=== PATIENT | female | born 1975 | race Two or more races ===

== ENCOUNTER 2017-04-04 18:38 | Emergency (ER) | payer MEDICAID ==
[~2017-04-04] VITALS: Ht 157.5 cm; Wt 102.1 kg
[2017-04-04 18:51] VITALS: BP 127/75
== END 2017-04-04 19:53 | disposition home or self-care (01) ==
LOC: ED 19:31
DX: B86 Scabies (principal)
CPT/HCPCS: 99283

== ENCOUNTER 2019-01-23 07:03 | Emergency (ER) | payer MEDICAID ==
[~2019-01-23] VITALS: Ht 157.5 cm; Wt 85.9 kg
[2019-01-23] MEDS ORDERED: MORPHINE SULFATE 4 MG/ML, 1ML ONE (07:09)
[2019-01-23] MEDS ORDERED: ONDANSETRON 2MG/ML, 2ML ONE (07:09)
[2019-01-23 07:19] LABS: BASOPHILS # (AUTO) 0.07 x10^3/uL (0-0.1); BASOPHILS % (AUTO) 1 % (0-1); EOSINOPHILS # (AUTO) 0.18 x10^3/uL (0-0.4); EOSINOPHILS % (AUTO) 2 % (1-7); LYMPHOCYTES # (AUTO) 2.52 x10^3/uL (1-3.4); LYMPHOCYTES % (AUTO) 29 % (22-44); MD NO; MEAN CORPUSCULAR HEMOGLOBIN 31.6 pg (27.0-34.8); MEAN CORPUSCULAR HGB CONC 32.5 g/dL (32.4-35.8); MEAN CORPUSCULAR VOLUME 97.4 fL (80-100); MONOCYTES # (AUTO) 0.68 x10^3/uL (0.2-0.8); MONOCYTES % (AUTO) 8 % (2-9); NEUTROPHILS # (AUTO) 5.28 x10^3/uL (1.8-6.8); NEUTROPHILS % (AUTO) 61 % (42-75); PLATELET COUNT 336 x10^3/uL (130-400); RED CELL DISTRIBUTION WIDTH 12.8 % (9.6-15.2)
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
[2019-01-23 07:29] LABS: ALANINE AMINOTRANSFERASE 24 U/L (12-78); ALBUMIN 3.9 g/dL (3.4-5.0); ANION GAP 8 mmol/L (5-15); CALCIUM 8.5 mg/dL (8.5-10.1); CHLORIDE 111 mmol/L (98-107)
[2019-01-23] MEDS ORDERED: SODIUM CHLORIDE FLUSH 10ML SYR IVF ONE (07:30)
[2019-01-23] MEDS ORDERED: MORPHINE SULFATE 4 MG/ML, 1ML IVPush PRN (07:30)
[2019-01-23] MEDS ORDERED: CEFAZOLIN PMX 1GM/50ML 50 ML IV ONE (07:30)
[2019-01-23] MEDS ORDERED: SODIUM CHLORIDE 0.9% 1,000ML IVBOLUS ONE (07:30)
[2019-01-23] MEDS ORDERED: DIPH,PERTUSS(ACELL),TET VAC/PF 0.5 ML IM-VACC ONE ×2 (07:30→07:31)
[2019-01-23] MEDS ORDERED: CEFAZOLIN PMX 1GM/50ML 50 ML ONE (07:31)
[2019-01-23 07:32] LABS: ALKALINE PHOSPHATASE 67 U/L (45-117); BILIRUBIN,TOTAL 0.4 mg/dL (0.2-1.0); CREATININE 0.82 mg/dL (0.55-1.02)
[2019-01-23] MEDS ORDERED: LIDOCAINE-MPF 1%, 5ML ONE ×2 (07:43→07:52)
--- NOTE | 2019-01-23 08:55 | NUR ---
PT TRANSPORTED TO CT FOR SCAN, UNABLE TO TRANSFER. TECH TRANSPORTED PT BACK TO ROOM AND REQUESTED ORDERS TO HELP PT TOLERATE SCAN. SPOKE WITH MD, LIDOCAINE PROVIDED FOR INFILTRATION TO WOUND. PT RE TRANSPORTED TO CT WHERE SHE TOLERATED SCAN WELL AND WAS TRANSPORTED BACK TO ROOM. UPON ARRIVAL TO ROOM PT RESTING COMFORTABLE WITH NO SIGNS OF DISTRESS NOTED. AWAITING OFFICAL READ FOR POC
[2019-01-23 08:57] VITALS: BP 142/87
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
== END 2019-01-23 10:13 | disposition short-term general hospital (02) ==
LOC: ED 07:05
DX: S21.112A Laceration without foreign body of left front wall of thorax without penetration into thoracic cavity, initial encounter (principal); S51.812A Laceration without foreign body of left forearm, initial encounter; S27.1XXA Traumatic hemothorax, initial encounter; S27.0XXA Traumatic pneumothorax, initial encounter; X99.1XXA Assault by knife, initial encounter; Y93.89 Activity, other specified; Y92.410 Unspecified street and highway as the place of occurrence of the external cause; Y99.8 Other external cause status
CPT/HCPCS: 36415; 71045; 71250; 80053; 85025; 90471; 90715; 96365; 96366; 96375; 99285; J0690; J2270; J7030